=== PATIENT | female | born 1950 | race Caucasian/White ===

== ENCOUNTER 2018-10-27 10:52 | Outpatient (RCR) | payer MEDICARE, BC, SELFPAY ==
--- NOTE | 2018-10-27 12:24 | HP.PTEVAL ---
Patient's Visit Information JAS KEANE is a 68 year old F referred to Physical Therapy by Jaime Shafer MD with a diagnosis of ischemic stroke. Date of Evaluation: 10/27/18 Physical Therapist: Vincent Lopez, LUISITOT, OCS, CSCS - Visit Plan Plan: No skilled PT required at this time. - Subjective Findings: Ischemic stroke August 17 but not to doctor until August 26. R arm felt heavy and was in [place] at [facility]. [place] heavy two days adn then was fine. No other signs. Back to [place] a week later adn daughter took her after urgent care sent to ER. Saw neuro in [place] and stayed the night and diagnosed with ministroke. They put her on cholesterol meds adn plavix for a month. Daily baby aspirin. Had OT eval and given HEP. No leg symptoms. Never had trouble walking or mobility. Sometimes hard to get out of bathtub. Dressing and athing adn bathroom I. 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 Spends day watching politics. Volunteers at [employer] but has not lately due to arm. Enjoys yard work adn laying pation blocks currently. No problem with that yesterday. They just feel heavier. No pain. Baance is Ok , unchanged. - Objective Walks normal, steps normal not requiring rails. Trasnfers normal and safe and I to and fro sit and supine. LE strength 4+/5 hips, knees adn ankles without asymmetries. reflexes 1/3 patella and achilles. Sensation LE WNL to gross light touch B. Coordination to reciprocal toe adn heel tap and heel ge test normal. SLS 10 sec B. AROM B LE WNL to gross light touch. - Balance Scores Functional Gait Assessment Score: 27 % Disability: 10.0000 CATSIB Score (Max score 120 seconds): 120 - Rehabilitation Potential Physical Therapy Diagnosis: ischemic stroke. Recovered physicall adn no skilled PT required. - Anticipated Interventions Thank you for the opportunity to evaluate your patient. For Medicare and Medicare HMO plans, please review the plan of care and approve it. It will need to be FAXED BACK to us at [phone] for Medicare purposes. For Medicare only, by signing this I certify the plan of care. Please let me know if there are questions or concerns regarding this plan of care. Physician Signature: Date:
--- NOTE | 2018-10-27 17:08 | HP.OTEVAL_ITS ---
Patient's Visit Information JAS KEANE is a 68 year old F, referred to Occupational Therapy by Jaime Shafer MD, with a diagnosis of ischemic stroke/R arm weakness. Date of Evaluation: 10/27/18 Occupational Therapist: Beatriz Kinsey - Subjective Subjective: Pt seen for initial occupational therapy evaluation for ischemic stroke that occured August 17, 2018 in [place] and she didn't go to dr. until 08/26/18. Went to neurology in [place] that Friday and Friday where she had a neuro work up with diagnosis of ischemic stroke. Lives alone 1 story house w/ laundry in basement flight of steps w/ 1 handrail. Indep w/ BADLs/IADLs. Still drives. R hand dominent. Daughter lives close by if needs help. Has dog to care for - Objective Objective/Observation: decreased coordination/strength R UE - ROM ROM Comments: BUHamida WFL - Strength Packing Tractor Machine Operator: R 48#, L 46# Lateral Pinch: R 11#, L 12# Tripod Pinch: R 7#, L 6# Strength Comments: MMT R UE 4-/5, L UE 4/5 - Edema Other: No edema noted - Sensation Sensation Comments: only numbness R hand when driving with R hand on steering wheel - Nine Hole Peg Right: 24.8 seconds Left: 24.4 seconds - Quick DASH-Disab of Arm,Shoulder& Hand Quick DASH Score: 40.0000 - Rehabilitation General Assessment: Pt suffered ischemic stroke August 17. Pt demo MMT R UE 4-/5, L UE 4/5. Packing Tractor Machine Operator strength R 48#, L 46#. Pt indep w/ all BADLs/IADLs and lives on her own. Pt completed 9 hole peg test within average score when compared to L hand. Pt was educated on R UE HEP with orange theraband. Pt would prefer to complete exercises for R UE at home instead of come in for therapy. Pt demo good understanding on R UE HEP. Rec d/c OT orders, OT eval only. - Visit Plan General Plan: Pt suffered ischemic stroke August 17. Pt demo MMT R UE 4-/5, L UE 4/5. Packing Tractor Machine Operator strength R 48#, L 46#. Pt indep w/ all BADLs/IADLs and lives on her own. Pt completed 9 hole peg test within average score when compared to L hand. Pt was educated on R UE HEP with ishmael therabanpa. Pt would prefer to complete exercises for R UE at home instead of come in for therapy. Pt demo good understanding on R UE HEP. Rec d/c OT orders, OT eval only. TEXT: Thank you for the opportunity to evaluate your patient. For Medicare and Medicare HMO plans, please review the plan of care and approve it. It will need to be FAXED BACK to us at [phone] for Medicare purposes. Please let me know if there are questions or concerns regarding this plan of care. Physician Signature: Date:
== END 2018-10-27 13:43 | disposition home or self-care (01) ==
LOC: OT 10:52
PROVIDERS: Family Provider Family Medicine; PCP Family Medicine; Referring Provider Family Medicine; Visit Provider Family Medicine
DX: R29.898 Other symptoms and signs involving the musculoskeletal system (principal); Z86.73 Personal history of transient ischemic attack (TIA), and cerebral infarction without residual deficits
CPT/HCPCS: 97161; 97165; 97166

== ENCOUNTER → 2024-09-14 | Outpatient (CLI) | payer MEDICARE, OTHER, SELFPAY | END | disposition home or self-care (01) | PROVIDERS: PCP Family Medicine; Referring Provider Ophthalmology; Visit Provider Ophthalmology | DX: H51.8 Other specified disorders of binocular movement (principal); H53.2 Diplopia | CPT/HCPCS: 36415; 84443 ==